=== PATIENT | female | born 1975 | race Caucasian/White ===

== ENCOUNTER → 2016-09-25 | Outpatient (CLI) | payer MEDICAID ==
[~2016-09-25] MED LIST: BYDUREON2 M1 SQ; GLUCOPHAGE1000 MG PO; LOVASTATIN40 MG PO; MOBIC7.5 MG PO; ZESTRIL5 MG PO
== END ==
LOC: MAMMO 16:26
DX: Z12.31 Encounter for screening mammogram for malignant neoplasm of breast (principal)